=== PATIENT | male | born 1985 | race Caucasian/White ===

== ENCOUNTER 2017-03-19 11:04 | Emergency (ER) | payer SELFPAY ==
[2017-03-19 12:32] VITALS: BP 131/77
[2017-03-19] MEDS ORDERED: CLEOCIN PO ONE (12:53)
[2017-03-19] MEDS ORDERED: MOTRIN PO ONE (12:53)
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
== END 2017-03-19 13:20 | disposition home or self-care (01) ==
LOC: ED 11:04
DX: K02.9 Dental caries, unspecified (principal); K08.89 Other specified disorders of teeth and supporting structures
CPT/HCPCS: 99282

== ENCOUNTER 2018-08-27 10:30 | Emergency (ER) | payer SELFPAY ==
[2018-08-27 10:45] VITALS: BP 132/65
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
[2018-08-27] MEDS ORDERED: IBUPROFEN PO ONE (10:54)
[2018-08-27] MEDS ORDERED: TRIMOX PO ONE (10:54)
== END 2018-08-27 11:13 | disposition home or self-care (01) ==
LOC: ED 10:30
DX: K59.00 Constipation, unspecified (principal)
CPT/HCPCS: 99282

== ENCOUNTER 2019-12-24 18:23 | Emergency (ER) | payer SELFPAY ==
[2019-12-24 18:32] VITALS: BP 125/65
[2019-12-24] MEDS ORDERED: KETOROLAC 30 MG/1 ML INJ IM ONE (21:13)
--- NOTE | 2019-12-24 21:21 | Emergency Department Report ---
Chief Complaint: Back Pain/Injury Stated Complaint: LOWER BACK PAIN/LEG PAIN Time Seen by Provider: 12/24/19 21:02 - HPI History of Present Illness: This is a 34-year-old male with no prior medical history presents the ED complaining of lower back muscle spasms that worsened today. Patient states that this morning he had his muscles locking up on him while he was at work so he had to leave work. Patient states that he was seen at [facility] last week for similar symptoms and was treated in the ED but no prescriptions. Patient denies any fall, trauma, urinary symptoms, fever, chills or nausea vomiting abdominal pain - ROS Review of Systems: As noted in HPI - Exam Vital Signs: Vital Signs 12/24/19 18:29 Temperature 97.9 F Pulse Rate 67 Respiratory 16 Rate Blood Pressure 125/65 O2 Sat by Pulse 99 Oximetry Physical Exam: GENERAL: Alert and oriented x3, no apparent distress, Normal Gait, atraumatic. ABDOMEN: No organomegaly was noted,Positive bowel sounds, soft, and non- distended. . Nontender to palpation on all Quadrants, . BACK: Full range of motion, no spinal tenderness, nontender to palpation of latissimus dorsi muscles. NO CVA tenderness bilaterally SKIN: Warm and dry, No lesions, No ulceration or induration present. MSE screening note: Focused history and physical exam performed. Due to findings the following was ordered: ED Medical Decision Making - Medical Decision Making 34-year-old female presents to ED with myalgia /muscle spasm of the back ED course: Patient received Toradol in ED. Vital signs are normal patient is in no acute distress Discussed with patient follow-up with primary care physician. Discussed the patient and take medications as prescribed. Patient has no neurological deficit. Patient is alert and oriented 3 and understands all instructions given. 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 Take all your medications as you've been prescribed. If you have any worsening symptoms or develop new symptoms please return to ED immediately. Referrals: [facility], MD [Primary Care Provider] - 3-5 Days [facility] [Provider Group] - 3-[address] [facility] [Provider Group] - 3-5 Days Forms: Work/School Release Form(ED) Time of Disposition: 21:24
== END 2019-12-24 21:40 | disposition home or self-care (01) ==
LOC: ED 18:23
DX: M62.830 Muscle spasm of back (principal)
CPT/HCPCS: 96372; 99281; J1885

== ENCOUNTER 2020-01-05 06:37 | Emergency (ER) | payer OTHER ==
[2020-01-05 06:42] VITALS: BP 136/85
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
== END 2020-01-05 08:25 | disposition left against medical advice (07) ==
LOC: ED 06:37
DX: M54.5 Low back pain (principal); V89.2XXA Person injured in unspecified motor-vehicle accident, traffic, initial encounter; Y93.89 Activity, other specified; Y92.488 Other paved roadways as the place of occurrence of the external cause; Y99.8 Other external cause status
CPT/HCPCS: 99281

== ENCOUNTER 2020-04-26 21:12 | Emergency (ER) | payer OTHER ==
[2020-04-26 21:47] VITALS: BP 121/69
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
== END 2020-04-27 02:00 | disposition home or self-care (01) ==
LOC: ED 21:12
DX: S66.912A Strain of unspecified muscle, fascia and tendon at wrist and hand level, left hand, initial encounter (principal); Z79.899 Other long term (current) drug therapy; X50.0XXA Overexertion from strenuous movement or load, initial encounter; Y93.89 Activity, other specified; Y92.89 Other specified places as the place of occurrence of the external cause; Y99.8 Other external cause status
CPT/HCPCS: 99282; 99283

== ENCOUNTER 2020-05-13 10:00 | Emergency (ER) | payer SELFPAY ==
[2020-05-13 10:07] VITALS: BP 126/103
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
== END 2020-05-13 11:07 | disposition left against medical advice (07) ==
LOC: ED 10:00
DX: M54.9 Dorsalgia, unspecified (principal); Z53.21 Procedure and treatment not carried out due to patient leaving prior to being seen by health care provider

== ENCOUNTER 2020-06-18 00:56 | Emergency (ER) | payer SELFPAY ==
[2020-06-18 03:03] LABS: Basophils % (Auto) 0.5 % (0.0-1.8); Eosinophils # (Auto) 0.2 K/mm3 (0.0-0.4); Eosinophils % (Auto) 4.6 % (0.0-4.3); Hematocrit 45.2 % (35.5-45.6); Lymphocytes # (Auto) 1.9 K/mm3 (1.2-5.4); Mean Corpuscular HGB Conc 33 % (32-34); Mean Corpuscular Volume 96 fl (84-94); Monocytes # (Auto) 0.3 K/mm3 (0.0-0.8); Monocytes % (Auto) 5.2 % (0.0-7.3); Platelet Count 156 K/mm3 (140-440); Red Blood Count 4.68 M/mm3 (3.65-5.03); Red Cell Distribution Width 13.3 % (13.2-15.2)
[2020-06-18 03:27] LABS: Alanine Aminotransferase 15 units/L (7-56); Albumin 4.7 g/dL (3.9-5); BUN/Creatinine Ratio 8; Blood Urea Nitrogen 8 mg/dL (9-20); Calcium 9.8 mg/dL (8.4-10.2); Hemolysis Index 24
[2020-06-18] MEDS ORDERED: FAMOTIDINE 20 MG TAB PO ONE (04:43)
[2020-06-18] MEDS ORDERED: DICYCLOMINE 20 MG TAB PO ONE (04:43)
[2020-06-18] MEDS ORDERED: ONDANSETRON 4 MG ODT TAB PO ONE (04:43)
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
[2020-06-18 05:36] LABS: Bacteria,Urine 1+ /HPF (Negative); Bilirubin,Urine NEG (Negative); Blood,Urine NEG (Negative); Color,Urine Yellow (Yellow); Mucus,Urine FEW /HPF; Protein,Urine <15 mg/dL mg/dL (Negative); Urobilinogen,Urine < 2.0 mg/dL (<2.0)
[2020-06-18 05:45] VITALS: BP 127/86
== END 2020-06-18 05:45 | disposition home or self-care (01) ==
LOC: ED 00:56
DX: A08.4 Viral intestinal infection, unspecified (principal); R11.2 Nausea with vomiting, unspecified; F17.200 Nicotine dependence, unspecified, uncomplicated; Z79.899 Other long term (current) drug therapy; Z98.890 Other specified postprocedural states
CPT/HCPCS: 36415; 80053; 81001; 85025; Q0162

== ENCOUNTER 2020-11-18 20:32 | Emergency (ER) | payer SELFPAY ==
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
[2020-11-18 21:56] VITALS: BP 145/89
== END 2020-11-18 22:08 | disposition left against medical advice (07) ==
LOC: ED 20:32
DX: M25.571 Pain in right ankle and joints of right foot (principal); Z53.21 Procedure and treatment not carried out due to patient leaving prior to being seen by health care provider

== ENCOUNTER 2021-04-28 16:44 | Emergency (ER) | payer SELFPAY ==
[2021-04-28 17:55] VITALS: BP 136/72
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
== END 2021-04-28 21:46 | disposition home or self-care (01) ==
LOC: ED 16:44
DX: M72.2 Plantar fascial fibromatosis (principal); M79.671 Pain in right foot
CPT/HCPCS: 99282

== ENCOUNTER 2021-07-31 21:28 | Emergency (ER) | payer SELFPAY ==
[2021-07-31 23:24] VITALS: BP 147/90
--- NOTE | 2021-08-01 00:11 | XRay Report ---
CHEST 2 VIEWS INDICATION / CLINICAL INFORMATION: congestion. COMPARISON: 2 views of the chest from 04/30/2020 FINDINGS: SUPPORT DEVICES: None. HEART / MEDIASTINUM: No significant abnormality. LUNGS / PLEURA: No significant pulmonary abnormality. No significant pleural effusion. No pneumothora x. ADDITIONAL FINDINGS: No significant additional findings. IMPRESSION: 1. No acute abnormality of the chest. Signer Name: Conor Hemphill MD Signed: 08/01/2021 12:06 AM Workstation Name: [id number]
[2021-08-01 00:19] LABS: Basophils % (Auto) 0.5 % (0.0-1.8); Eosinophils # (Auto) 0.1 K/mm3 (0.0-0.4); Eosinophils % (Auto) 2.1 % (0.0-4.3); Hematocrit 42.3 % (35.5-45.6); Hemoglobin 13.9 gm/dl (11.8-15.2); Lymphocytes # (Auto) 0.6 K/mm3 (1.2-5.4); Lymphocytes % (Auto) 10.4 % (13.4-35.0); Mean Corpuscular HGB Conc 33 % (32-34); Mean Corpuscular Volume 97 fl (84-94); Monocytes # (Auto) 0.8 K/mm3 (0.0-0.8); Monocytes % (Auto) 13.5 % (0.0-7.3); Platelet Count 149 K/mm3 (140-440); Red Blood Count 4.36 M/mm3 (3.65-5.03); Red Cell Distribution Width 13.6 % (13.2-15.2)
[2021-08-01 00:44] LABS: Alanine Aminotransferase 15 units/L (7-56); Albumin 4.8 g/dL (3.9-5); BUN/Creatinine Ratio 7; Blood Urea Nitrogen 7 mg/dL (9-20); Calcium 9.5 mg/dL (8.4-10.2); Hemolysis Index 11
[2021-08-01] MEDS ORDERED: ACETAMINOPHEN 500 MG TAB PO ONE (05:56)
[2021-08-01] MEDS ORDERED: diphenhydrAMINE 25 MG CAP PO ONE (05:56)
[2021-08-01] MEDS ORDERED: METOCLOPRAMIDE 10 MG TAB PO ONE (05:56)
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
[2021-08-01] MEDS ORDERED: KETOROLAC 10 MG TAB PO ONE (06:28)
== END 2021-08-02 05:16 | disposition home or self-care (01) ==
LOC: ED 21:28
DX: B34.9 Viral infection, unspecified (principal); F17.200 Nicotine dependence, unspecified, uncomplicated
CPT/HCPCS: 36415; 71046; 80053; 85025; 99283